=== PATIENT | female | born 1960 | race Caucasian/White ===

== ENCOUNTER → 2016-12-15 | Outpatient (CLI) | payer MEDICARE, MEDICAID ==
[~2016-12-15] MED LIST: CELEBREX200 MG PO; CLARITIN D 12 H1 TAB PO; COLACE100 MG PO; DILAUDID 4MG4 MG PO; DOXEPIN HCL25 MG PO; DOXIPIN PO; LOVENOX 4040 MG/0.4 SUB-Q; NEURONTIN300 MG PO; OXYCONTIN EXTEN10 MG PO; PATANASE30.5 GM NOSE; PROVENTIL OR V6.7 GM INH
== END | disposition disaster alternative care site (69) ==
LOC: GRAD 14:41
DX: Z47.1 Aftercare following joint replacement surgery (principal); Z96.611 Presence of right artificial shoulder joint